=== PATIENT | female | born 1945 | race Caucasian/White ===

== ENCOUNTER 2017-09-22 00:13 | Emergency (ER) | payer MEDICARE, OTHER ==
[~2017-09-22] VITALS: Ht 154.9 cm; Wt 57.0 kg
[~2017-09-22 00:13] MED LIST: ASPI81TA21 PO; BENZ100 PO; ERGO50000 PO; SIMV20 PO; TOPR25TA2 PO; ZANT150T2 PO; ZITH250T PO
[2017-09-22 00:18] VITALS: BP 124/62; PULSE 88; RESP 18; TEMP 97.5; O2SAT 98
[2017-09-22 00:58] VITALS: BP 135/71; PULSE 87; RESP 16; O2SAT 100
[2017-09-22] MEDS ORDERED: ZOCO20TA PO (01:06)
[2017-09-22] MEDS ORDERED: TOPR25TA PO (01:06)
[2017-09-22] MEDS ORDERED: ZANT150T2 PO (01:07)
[2017-09-22] MEDS ORDERED: ASPI-516 CHEW (01:07)
--- NOTE | 2017-09-22 02:26 | PD ---
HPI Chief Complaint: Cold / Flu Symptoms Time Seen by Provider: 02:09 Travel History International Travel<30 days: No Contact w/Intl Traveler<30days: No Traveled to known affect area: No History of Present Illness HPI The patient is a 72-year-old female that has had a cough productive of green sputum and congestion for 2 weeks. She quit smoking 4 years ago. She denies any nausea, vomiting or diarrhea. She denies any fever. She denies any chest pain or shortness of breath. He states the cough got worse tonight and this is why she came in. She does have a primary care physician, she did not contact him. PFSH Past Medical History Anxiety: Yes Depression: No Cancer: No Cardiovascular Problems: Yes High Cholesterol: Yes Diabetes: No Diminished Hearing: No Endocrine: No Gastrointestinal Disorders: Yes (GERD) Genitourinary: No Hepatitis: No Hiatal Hernia: No Hypertension: Yes Immune Disorder: No Implanted Vascular Access Dvce: No Medical other: No Musculoskeletal: Yes (DDD, ARTHTITIS) Neurologic: No Psychiatric: Yes (ANXIETY) Reproductive: No Respiratory: No Immunizations Current: Yes Thyroid Disease: No Tetanus Vaccination: < 5 Years Influenza Vaccination: Yes ?: Not Menopausal: Yes Past Surgical History AICD: No Joint Replacement: No Neurologic Surgery: Yes (LAMINECTOMY) Pacemaker: No Other Surgery: Yes (sebaceous cyst removed) Social History Alcohol Use: Yes (4-5 DRINKS DAILY) Tobacco Use: No Substance Use: No Allergies-Medications (Allergen,Severity, Reaction): Coded Allergies: naproxen (Verified Allergy, Unknown, 09/22/17) 09/17/14--RECTAL BLEED Reported Meds & Prescriptions Reported Meds & Active Scripts Active Reported Zantac (Ranitidine HCl) 150 Mg Tab 150 Mg PO DAILY Aspirin 81 Mg Chew 81 Mg CHEW DAILY Zocor (Simvastatin) 20 Mg Tab 20 Mg PO DAILY Toprol XL (Metoprolol Succinate) 25 Mg Tab 25 Mg PO DAILY Review of Systems Except as stated in HPI: all other systems reviewed are Neg Physical Exam Narrative GENERAL: The patient is alert, oriented 3 in no respiratory distress. The vital signs are normal. Oximetry is 100% on room air. SKIN: Focused skin assessment warm/dry. No skin rash is seen. HEAD: Atraumatic. Normocephalic. EYES: Pupils equal and round. No scleral icterus. No injection or drainage. ENT: No nasal bleeding or discharge. Mucous membranes pink and moist. NECK: Trachea midline. No JVD. CARDIOVASCULAR: Regular rate and rhythm. No murmur appreciated. RESPIRATORY: No accessory muscle use. Clear to auscultation. Breath sounds equal bilaterally. GASTROINTESTINAL: Abdomen soft, non-tender, nondistended. Hepatic and splenic margins not palpable. MUSCULOSKELETAL: No obvious deformities. No clubbing. No cyanosis. No edema. NEUROLOGICAL: Awake and alert. No obvious cranial nerve deficits. Motor grossly within normal limits. Normal speech. PSYCHIATRIC: Appropriate mood and affect; insight and judgment normal. Data Data Last Documented VS Vital Signs Date Time Temp Pulse Resp B/P (MAP) Pulse Ox O2 Delivery O2 Flow Rate FiO2 09/22/17 02:54 71 18 129/58 (81) 98 Room Air 09/22/17 00:18 97.5 Orders Orders Influenzae A/B Antigen (09/22/17 01:20) Chest, Pa & Lat (09/22/17 02:13) MDM Medical Decision Making Medical Screen Exam Complete: Yes Emergency Medical Condition: Yes Medical Record Reviewed: Yes Interpretation(s) The chest x-ray shows no acute disease and the influenza A/B antigen is negative for flu a and flu B antigen. Differential Diagnosis Viral upper respiratory infection, bronchitis, pneumonia, hypoxemia Narrative Course The patient appears to have a viral syndrome. The patient strongly requested she get an antibiotic because she is frustrated after 2 weeks of coughing and nothing seemed to help her get better. She requests Zithromax. She will be given Zithromax. Diagnosis Primary Impression: Viral upper respiratory infection Additional Instructions: The Zithromax is one tablet daily for 5 days. Follow-up with your primary care physician next week. Med/Other Pt SpecificInfo: Prescription(s) given Scripts Azithromycin (Zithromax) 500 Mg Tab 500 MG PO DAILY for Infection for 5 Days, #5 TAB 0 Refills Prov: Eric Jeter MD 09/22/17 Disposition: 01 DISCHARGE HOME Condition: Stable Eric Jeter MD Sep 22, 2017 02:26
[2017-09-22 02:54] VITALS: BP 129/58; PULSE 71; RESP 18; O2SAT 98
--- NOTE | 2017-09-22 03:03 | RADRPT ---
EXAM DATE/TIME: 09/22/2017 02:30 [facility] COMPARISON: CHEST PA & LAT, September 17, 2014, 12:57. INDICATIONS : Cough. MEDICAL HISTORY : None. SURGICAL HISTORY : None. ENCOUNTER: Initial ACUITY: 2 weeks PAIN SCORE: 0/10 LOCATION: Bilateral chest FINDINGS: PA and lateral views of the chest demonstrate the lungs to be symmetrically aerated without evidence of mass, infiltrate or effusion. The cardiomediastinal contours are unremarkable. Osseous structure s are intact. CONCLUSION: No acute disease. Drew Cole MD on September 22, 2017 at 3:02 Board Certified Radiologist. This report was verified electronically.
[2017-09-22] MEDS ORDERED: ZITH500T PO (03:21)
== END 2017-09-22 03:33 | disposition home or self-care (01) ==
LOC: PHED 00:13
DX: J06.9 Acute upper respiratory infection, unspecified (principal); I10 Essential (primary) hypertension; E78.00 Pure hypercholesterolemia, unspecified; K21.9 Gastro-esophageal reflux disease without esophagitis; Z87.891 Personal history of nicotine dependence
CPT/HCPCS: 71046; 87804; 99284